=== PATIENT | female | born 1990 | race Caucasian/White ===

== ENCOUNTER 2016-09-24 09:49 | Emergency (ER) | payer MEDICAID, MEDICARE ==
[2016-09-24 10:36] VITALS: BP 145/91
--- NOTE | 2016-09-24 11:35 | UC ---
Throat Pain/Nasal Galo HPI - HPI Summary HPI Summary: complaint of red and ithcy eyes that started 4 days ago purulent drainage from both eyes denies any vision changes and eye pain nasal congestion for the last 2 days sore throat pain for 2 days swollen glands in her neck denies fever and chills denies headaches denies cough not taking any medications acnes on her face has worsened and she has several more sores on her neck hasn't needed to her albuterol during this illness - History of Current Complaint Chief Complaint: UCGeneralIllness Stated Complaint: FACIAL SWELLING,RED EYES,CONGEST Time Seen by Provider: 09/24/16 11:28 Hx Obtained From: Patient Hx Last Menstrual Period: 09/22/16 - Allergies/Home Medications Allergies/Adverse Reactions: Allergies Allergy/AdvReac Type Severity Reaction Status Date / Time Amoxicillin [From Augmentin] Allergy Mild Hives Verified 05/14/15 14:40 Cefaclor [From Ceclor] Allergy Mild Hives Verified 05/14/15 14:40 Ceftriaxone Allergy Mild Hives Verified 05/14/15 14:40 Clavulanic Acid Allergy Mild Hives Verified 05/14/15 14:40 [From Augmentin] Penicillins Allergy Mild Hives Verified 05/14/15 14:40 Adhesive Tape Allergy Rash Verified 05/14/15 14:40 Latex Allergy Rash Verified 05/14/15 14:40 PMH/Surg Hx/FS Hx/Imm Hx Previously Healthy: Yes Endocrine History Of: Denies: Diabetes, Thyroid Disease Cardiovascular History Of: Denies: Cardiac Disorders, Hypertension, Congestive Heart Failure Respiratory History Of: Reports: Asthma, Bronchitis - " Denies: COPD GI/ History Of: Reports: Kidney Stones - Hx OF, PASSED, Denies: Ulcer, Renal Disease Psychological History Of: Reports: Anxiety - ON DAILY MEDS, Depression - Surgical History Surgical History: Yes Surgery Procedure, Year, and Place: YOUNG CHILD T & A [facility] [place]. YOUNG CHILD TUBES IN BOTH EARS [facility] [place]. 2008 FRACTURED NASAL BONE [facility] [place]. CHOLECYSTECTOMY 05/09/16 fl[place]quito r leg r ankle screws - Family History Known Family History: Negative: Cardiac Disease, Hypertension, Diabetes - Social History Occupation: Employed Full-time Lives: With Family Alcohol Use: None Substance Use Type: None Smoking Status (MU): Light Every Day Tobacco Smoker Amount Used/How Often: 1/2PPD 6 YRS Have You Smoked in the Last Year: Yes Household Exposure Type: Cigarettes Cessation Counseling: Patient Advised to Stop Review of Systems Constitutional: Negative Skin: Rash Eyes: Drainage, Eye Redness ENT: Sore Throat, Ear Ache, Nasal Discharge Respiratory: Negative Cardiovascular: Negative Gastrointestinal: Negative Genitourinary: Negative Motor: Negative Neurovascular: Negative Musculoskeletal: Negative Neurological: Negative Psychological: Negative All Other Systems Reviewed And Are Negative: Yes Physical Exam Triage Information Reviewed: Yes Appearance: No Pain Distress, Well-Nourished Vital Signs: Initial Vital Signs Temp 98.8 F 09/24/16 10:29 Pulse 101 09/24/16 10:29 Resp 20 09/24/16 10:29 BP 145/91 09/24/16 10:29 Pulse Ox 98 09/24/16 10:29 Vital Signs Reviewed: Yes Eyes: Positive: Conjunctiva Clear ENT: Positive: Pharyngeal erythema, Nasal congestion, Nasal drainage, TMs normal Dental: Positive: Cervical Lymphadenopathy Respiratory: Positive: Lungs clear, Normal breath sounds, No respiratory distress, No accessory muscle use Cardiovascular: Positive: RRR, No Murmur, Pulses Normal Abdomen Description: Positive: Nontender, Soft Bowel Sounds: Positive: Present Musculoskeletal: Positive: No Edema Neurological: Positive: Alert Psychological Exam: Normal Skin: Positive: rashes - face covered with pustules several are surrounded with erythema Throat Pain/Nasal Course/Dx - Course Course Of Treatment: exam. completed. will treat with antibiotics and mupiricoin for super infected acne,sore throat and conjucntivitis - Differential Dx/Diagnosis Differential Diagnosis/HQI/PQRI: Pharyngitis, Sinusitis, Tonsillitis, Other - cellilitis, conjunctivitis Provider Diagnoses: conjunctivitis, pharyngitis, acne with cellulitis,elevated blood pressure Discharge - Discharge Plan Condition: Stable Disposition: HOME Prescriptions: Clarithromycin TAB* [Biaxin 500 MG TAB*] 500 mg PO BID #20 tab Mupirocin 2% OINT* [Bactroban 2 % Oint*] 1 applic TOPICAL BID #1 tube Tobramycin (Ophth) [Tobrex] 0.3 % BOTH EYES Q4HR #1 [id number] Patient Education Materials: Conjunctivitis (ED), Cellulitis (ED), Pharyngitis (ED) Referrals: Brian Vee MD [Primary Care Provider] - Additional Instructions: Please start antibiotic and eye drops as directed Increase fluids and rest Take acetaminophen or ibuprofen for fever or pain Please review your discharge instructions. If your symptoms do not improve please call your primary care provider or return to urgent care. Your blood pressure is elevated. Please contact your primary care provider within 1 -4 weeks for further evaluation.
== END 2016-09-24 11:49 | disposition home or self-care (01) ==
LOC: UCEAST 09:49
DX: H10.33 Unspecified acute conjunctivitis, bilateral (principal); J02.9 Acute pharyngitis, unspecified; L70.9 Acne, unspecified; L03.211 Cellulitis of face; R03.0 Elevated blood-pressure reading, without diagnosis of hypertension; J45.909 Unspecified asthma, uncomplicated; Z87.442 Personal history of urinary calculi; F41.9 Anxiety disorder, unspecified; F32.9 Major depressive disorder, single episode, unspecified; Z90.49 Acquired absence of other specified parts of digestive tract; Z88.1 Allergy status to other antibiotic agents; Z91.040 Latex allergy status; Z88.0 Allergy status to penicillin; Z91.048 Other nonmedicinal substance allergy status; F17.210 Nicotine dependence, cigarettes, uncomplicated
CPT/HCPCS: 99211; G0463